=== PATIENT | male | born 1970 | race Caucasian/White ===

== ENCOUNTER 2021-04-03 10:49 | Emergency (ER) | payer MEDICARE, OTHER ==
[~2021-04-03 10:49] MED LIST: AMARYL2 MG PO; BENTYL10 MG PO; CYMBALTA20 MG PO; GABAPENTIN400 MG PO; HCTZ25 MG PO; HUMULIN 70100 UNIT/1 SC; HYDROCODON-ACE1 EAC6 PO; IBUPROFEN800 MG PO; INDERAL20 MG PO; LISINOPRIL-HCT1 EAC1 PO; NEURONTIN300 MG PO; NORVASC5 MG PO; SYMBICORT 80-10.2 GM INH; VENTOLIN HFA IN18 GM INH; VICODIN 10/3251 EACH PO; ZOFRAN4 MG PO
[2021-04-03 11:37] LABS: BASOPHIL 0.7 % (0-2); EOSINOPHIL 0.7 % (0-5); HCT 42.1 % (42.0-52.0); HGB 14.5 g/dl (13.2-18.0); LYMPHOCYTE 34.5 % (15-48); MCH 29.1 pg (25.0-31.0); MCHC 34.4 g/dL (32.0-36.0); MCV 84.5 fL (78.0-100.0); MPV 9.8 fL (6.0-9.5); NEUTROPHIL 55.8 % (41-80); NRBC 0; PLT 366 K/uL (150-400); RBC 4.98 M/uL (4.70-6.00); RDW 12.7 % (11.5-14.0); WBC 10.7 K/uL (4.0-10.5)
[2021-04-03 11:53] LABS: AMPHETAMINES NEGATIVE (NEGATIVE); BARBITURATES NEGATIVE (NEGATIVE); BILIRUBIN NEGATIVE (NEGATIVE); BLOOD NEGATIVE Ery/uL (NEGATIVE); CLARITY CLEAR (CLEAR); COLOR YELLOW (YELLOW); ECSTASY (MDMA) NEGATIVE (NEGATIVE); GLUCOSE (U) 3+ mg/dL (NORMAL); LEUKOCYTES NEGATIVE Leu/uL (NEGATIVE); MARIJUANA (THC) NEGATIVE (NEGATIVE); METHADONE NEGATIVE (NEGATIVE); NITRITE NEGATIVE (NEGATIVE); OPIATES POSITIVE (NEGATIVE); OXYCODONE NEGATIVE (NEGATIVE); PROTEIN NEGATIVE (NEGATIVE); SPECIFIC GRAVITY 1.015 (1.001-1.030); pH 6.5 (5.0-9.0)
[2021-04-03 12:02] LABS: ALBUMIN 3.6 g/dL (3.4-5.0); BILIRUBIN - TOTAL 0.4 mg/dL (0.2-1.0); BUN/CREAT RATIO (CALC) 11.8 RATIO; CREATININE 0.68 mg/dL (0.67-1.17); GLOBULIN (CALCULATION) 3.6 g/dL; POTASSIUM 3.6 mmol/L (3.5-5.1); TOTAL PROTEIN 7.2 g/dL (6.4-8.2)
[2021-04-03] MEDS ORDERED: ANTIVERT25 MG PO (16:15)
[2021-04-03] MEDS ORDERED: NORVASC 10MG TA10 MG PO (16:15)
[2021-04-04] MEDS ORDERED: PROTONIX 40MG T40 MG PO (18:50)
[2021-04-04] MEDS ORDERED: BENTYL10 MG PO (18:53)
[2021-04-04] MEDS ORDERED: HYDROCODON-ACE1 EAC2 PO ×2 (19:45→19:47)
== END 2021-04-03 16:53 | disposition home or self-care (01) ==
LOC: FER 10:49
PROVIDERS: Internal Medicine
DX: E10.65 Type 1 diabetes mellitus with hyperglycemia (principal); I10 Essential (primary) hypertension; R42 Dizziness and giddiness; F17.210 Nicotine dependence, cigarettes, uncomplicated; Z88.0 Allergy status to penicillin; Z91.013 Allergy to seafood
CPT/HCPCS: 36415; 70450; 71045; 80053; 80305; 81003; 84145; 84443; 84484; 85025; 93005; J1170; J3490; J7030

== ENCOUNTER 2021-04-04 15:10 | Emergency (ER) | payer MEDICARE, OTHER ==
[~2021-04-04 15:10] MED LIST changes: +ANTIVERT25 MG PO; +NORVASC 10MG TA10 MG PO
[2021-04-04 16:37] LABS: BILIRUBIN NEGATIVE (NEGATIVE); BLOOD NEGATIVE Ery/uL (NEGATIVE); CLARITY CLEAR (CLEAR); COLOR YELLOW (YELLOW); GLUCOSE (U) 3+ mg/dL (NORMAL); LEUKOCYTES NEGATIVE Leu/uL (NEGATIVE); NITRITE NEGATIVE (NEGATIVE); PROTEIN NEGATIVE (NEGATIVE)
[2021-04-04 16:59] LABS: BASOPHIL 0.5 % (0-2); EOSINOPHIL 0.6 % (0-5); HCT 40.5 % (42.0-52.0); LYMPHOCYTE 32.7 % (15-48); MCH 29.5 pg (25.0-31.0); MCHC 34.6 g/dL (32.0-36.0); MCV 85.3 fL (78.0-100.0); MONOCYTE 8.4 % (0-12); MPV 9.8 fL (6.0-9.5); NEUTROPHIL 57.5 % (41-80); NRBC 0; PLT 344 K/uL (150-400); RBC 4.75 M/uL (4.70-6.00); RDW 12.8 % (11.5-14.0); WBC 11.1 K/uL (4.0-10.5)
[2021-04-04 17:18] LABS: ALBUMIN 3.6 g/dL (3.4-5.0); BILIRUBIN - TOTAL 0.4 mg/dL (0.2-1.0); BUN/CREAT RATIO (CALC) 10.8 RATIO; CREATININE 0.65 mg/dL (0.67-1.17); GLOBULIN (CALCULATION) 3.6 g/dL; TOTAL PROTEIN 7.2 g/dL (6.4-8.2)
[2021-04-04] MEDS ORDERED: PROTONIX 40MG T40 MG PO (18:50)
[2021-04-04] MEDS ORDERED: BENTYL10 MG PO (18:53)
[2021-04-04] MEDS ORDERED: HYDROCODON-ACE1 EAC2 PO ×2 (19:45→19:47)
== END 2021-04-04 20:25 | disposition home or self-care (01) ==
LOC: FER 15:10
PROVIDERS: Internal Medicine
DX: R10.11 Right upper quadrant pain (principal); R42 Dizziness and giddiness; E27.8 Other specified disorders of adrenal gland; I45.10 Unspecified right bundle-branch block; E10.9 Type 1 diabetes mellitus without complications; F17.210 Nicotine dependence, cigarettes, uncomplicated; Z91.013 Allergy to seafood; Z88.0 Allergy status to penicillin
CPT/HCPCS: 36415; 80053; 81003; 83690; 84484; 85025; 93005; 96372; C9113; J1170; J2405; Q9967